=== PATIENT | male | born 2000 ===

== ENCOUNTER 2025-01-13 10:57 | Emergency (ER) | payer SELFPAY ==
[~2025-01-13] VITALS: Ht 177.8 cm; Wt 99.8 kg
[2025-01-13] MEDS ORDERED: CYCL-309 PO (11:12)
[2025-01-13] MEDS ORDERED: IBUP-2077 PO (11:12)
--- NOTE | 2025-01-13 11:13 | ERN ---
ED Note History of Present Illness Stated Complaint: BACK PAIN Chief Complaint: Back Pain-No Injury Time Seen by MD: 11:01 Dictation: PATIENT IS A 24-YEAR-OLD MALE COMING IN TODAY VIA EMS WITH COMPLAINTS OF NON TRAUMA LOW BACK PAIN HE HAS HAD FOR THREE DAYS. HE DENIES ANY PRIOR HISTORY OF SURGERY OR INJURIES. THERE WAS NO RADICULAR PAIN. NO FEVER NO CHILLS NO CHANGE IN URINATION. NO PRIMARY CARE DOCTOR AND HE STATES HE HAS BEEN TAKING TYLENOL FOR PAIN. HE STATES HE THINKS THE PAIN IS COMING FROM HIM CARRYING AROUND BACK PACKS FOR THE LAST SEVERAL DAYS. Allergies: Coded Allergies: No Known Drug Allergies (Unverified Allergy, Unknown, 01/13/25) Home Meds Active Scripts Ibuprofen (Ibuprofen 800 mg Tab) 800 Mg Tab, 800 MG PO Q8H PRN for fever or pain, #30 TAB 0 Refills Prov:NAYLA RUFFIN [employer] 01/13/25 Cyclobenzaprine HCl (Cyclobenzaprine HCl) 10 Mg Tablet, 1 TAB PO TID for muscle spasms for 10 Days, #30 TAB 0 Refills Prov:NAYLA RUFFIN [employer] 01/13/25 Past Medical History Past Medical History: No Pertinent History Surgical History: None RN Note Reviewed/Agreed w/PFSH: Yes Review of System Dictation CONSTITUTIONAL: NEGATIVE EXCEPT FOR HPI HEAD/FACE: NEGATIVE EXCEPT FOR HPI EENT: NEGATIVE EXCEPT FOR HPI RESPIRATORY: NEGATIVE EXCEPT FOR HPI GASTROINTESTINAL/ABDOMINAL: NEGATIVE EXCEPT FOR HPI GENITOURINARY: NEGATIVE EXCEPT FOR HPI MUSCULOSKELETAL: NEGATIVE EXCEPT FOR HPI LOW BACK PAIN INTEGUMENTARY: NEGATIVE EXCEPT FOR HPI NEUROLOGICAL/PSYCH: NEGATIVE EXCEPT FOR HPI HEMATOLOGIC/LYMPHATIC: NEGATIVE EXCEPT FOR HPI ALL SYSTEMS NEGATIVE, EXCEPT NOTED ABOVE. 13 POINT REVIEW OF SYSTEMS ASSESSED AND ALL NEGATIVE EXCEPT FOR ABOVE. Initial Vital Sign VS Vital Signs Date Time Temp Pulse Resp B/P (MAP) Pulse Ox O2 Delivery O2 Flow Rate FiO2 01/13/25 10:58 98.1 68 14 132/84 100 Room Air 0 Physical Exam Dictation VITAL SIGNS REVIEWED GENERAL APPEARANCE: ALERT, ORIENTED X 3, MILD ACUTE DISTRESS, WELL DEVELOPED, NOURISHED. HEAD AND FACE: NON-TRAUMATIC. EYES: PERRL, PINK CONJUNCTIVAS, EYELID NO TRAUMA, ANTERIOR CHAMBER WITH ARCUS SENILIS. EARS: PINNAS INTACT AND NO SIGNS OF TRAUMA OR ERYTHEMA EAR CANALS CLEAR AND NO DISCHARGE TM NO ERYTHEMA NOSE: NO DISCHARGE, NO BLEEDING. OROPHARYNX: MOUTH NORMAL, TONGUE PINK, PHARYNX CLEAR,NO ERYTHEMA, TONSILS NO EXUDATES, NO ABSCESSES NOTED, MUCOUS MEMBRANE MOIST NECK: SUPPLE, NON-TENDER, NO THYROMEGALY, NO MASSES, NO JVD, NO BRUITS BREAST:DEFERRED CHEST:NO TENDERNESS, NO CREPITUS, NO PARADOXICAL MOVEMENT, NO RETRACTIONS LUNGS:CLEAR, WELL-VENTILATED, SYMMETRIC, NO RALES, NO WHEEZING, NO RHONCHI, NO STRIDOR, GOOD BREATH SOUNDS BILATERALLY HEART: REGULAR RATE, REGULAR RHYTHM, NO MURMUR, NO GALLOPS VASCULAR: NO PERIPHERAL EDEMA, ABDOMEN: SOFT, POSITIVE BOWEL SOUNDS, NONDISTENDED, NO GUARDING, NONTENDER, NO REBOUND, NO MASSES NO HEPATOMEGALY, NO SPLENOMEGALY, NO NOVA'S SIGN, NO HERNIAS. RECTAL: DEFERRED GENITAL: DEFERRED NEUROLOGICAL: NORMAL SPEECH, MOTOR FUNCTION INTACT, SENSORY FUNCTION INTACT MUSCULOSKELETAL: NECK NONTENDER, FULL RANGE OF MOTION, DIFFUSE LUMBAR PAIN., FULL RANGE OF MOTION, NO STEP-OFFS. NEGATIVE STRAIGHT LEG RAISE BILATERALLY 10. EXTREMITIES: NONTENDER, FULL RANGE OF MOTION SKIN: COLOR PINK, DRY, NO TURGOR, NO RASH, NO LACERATIONS, NO ABRASIONS, NO CONTUSIONS. LYMPHATIC: DEFERRED Results (Laboratory/Radiology) Labs Reviewed?: Yes ED Course ED Course Orders Procedure Category Date Status Time Dexamethasone 4mg/Ml PHA 01/13/25 Complete 1ml Vial (Dexametha 11:30 Ibuprofen 800 Mg Tab PHA 01/13/25 Complete (Motrin) 11:30 Current Medications Medications (Trade) Dose Ordered Sig/Mary Route PRN Reason Start Time Stop Time Status Last Admin Dose Admin Dexamethasone Sodium Phosphate (dexaMETHasone 4MG/ML 1ML VIAL) 8 mg ONCE ONCE IM 01/13/25 11:30 01/13/25 11:31 DC 01/13/25 11:36 Ibuprofen (moTRIN) 800 mg ONCE ONCE PO 01/13/25 11:30 01/13/25 11:31 DC 01/13/25 11:36 Vital Signs Date Time Temp Pulse Resp B/P (MAP) Pulse Ox O2 Delivery O2 Flow Rate FiO2 01/13/25 10:58 98.1 68 14 132/84 100 Room Air 0 1110/NO LABS OR IMAGING INDICATED. WE WILL TREAT FOR PAIN AND HAVE PATIENT FOLLOW UP WITH HIS PRIMARY CARE DOCTOR AND KEVIN MARTHA HE SAID HE He would follow up. He did say that he was hearing voices however they were nonspecific. He denied any thoughts of suicidal or homicidal ideation. He states he has been hearing voices a long time on-call. Medical Decision Making MDM MEDICAL DECISION-MAKING BASED ON EMPIRIC TREATMENT FOR LUMBAR PAIN. NO LABS OR IMAGING INDICATED. WE WILL GIVE DECADRON AND IBUPROFEN PATIENT WILL BE PRESCRIBED FLEXERIL AND IBUPROFEN TOLD SEE HIS PRIMARY CARE DOCTOR DX & DISP Disposition: Discharge Departure Impression: Primary Impression: Acute myofascial strain of lumbar region Condition: Stable Scripts Ibuprofen (Ibuprofen 800 mg Tab) 800 Mg Tab 800 MG PO Q8H PRN for fever or pain, #30 TAB 0 Refills Prov: NAYLA RUFFIN 01/13/25 Cyclobenzaprine HCl (Cyclobenzaprine HCl) 10 Mg Tablet 1 TAB PO TID for muscle spasms for 10 Days, #30 TAB 0 Refills Prov: NAYLA RUFFIN 01/13/25 Additional Instructions: FOLLOW-UP WITH PRIMARY CARE PROVIDER IN 1 TO 2 DAYS. TAKE MEDICATIONS DIRECTED HERE IN THE EMERGENCY ROOM. OKAY TO CONTINUE HOME MEDICATIONS UNLESS OTHERWISE DISCUSSED DURING YOUR VISIT IN THE EMERGENCY ROOM TODAY. RETURN TO YOUR NEAREST EMERGENCY ROOM IF SYMPTOMS WORSEN OR IF THERE IS NO IMPROVEMENT. CALL 911 IF YOU NEED IMMEDIATE ASSISTANCE. TAKE TYLENOL OR MOTRIN [id number] NEEDED AND IF NO CONTRAINDICATIONS ARE PRESENT. INCREASE ORAL HYDRATION. A WOUND CULTURE OR URINE CULTURE WAS ORDERED HERE IN THE EMERGENCY ROOM DEPARTMENT PLEASE FOLLOW-UP WITH PRIMARY CARE PROVIDER AND ADVISE THEM TO GET REPEAT PORTS FROM OUR FACILITY. IF YOU HAD ANY SYDNI WRAP/SPLINTS THAT WERE APPLIED HERE, PLEASE DO NOT REMOVE THEM UNTIL YOU SEE YOUR PRIMARY CARE OR SPECIALTY. TAKE IBUPROFEN AND FLEXERIL EVERY 8 HOURS WITH FOOD FOR THE NEXT TWO DAYS. WARM COMPRESSES TO BACK THREE TO 4 TIMES A DAY. SEE YOUR PRIMARY CARE DOCTOR FOR FOLLOW UP OR SEE ONE OF THE DOCTORS ON THE LIST PROVIDED YOU IN THE NEXT 2-3 DAYS. Referrals: SELF,REFERRAL (PCP) Time of Disposition: 11:12 I have reviewed the case, and I agree with, Diagnosis and Plan NAYLA RUFFIN Jan 13, 2025 11:13
[2025-01-13 11:45] VITALS: BP 131/85; PULSE 65; RESP 16; TEMP 98.1; O2SAT 100
--- NOTE | 2025-01-13 11:52 | NUR ---
PT DID NOT WANT DISCHARGE PAPERWORK OR PRESCRIPTIONS NOTIFDIED ER PROVIDER.
== END 2025-01-13 11:52 | disposition home or self-care (01) ==
LOC: EDH 10:57
DX: S39.012A Strain of muscle, fascia and tendon of lower back, initial encounter (principal); X58.XXXA Exposure to other specified factors, initial encounter; Y93.89 Activity, other specified; Y92.89 Other specified places as the place of occurrence of the external cause; Y99.8 Other external cause status
CPT/HCPCS: 99283; 96372; J1100